=== PATIENT | male | born 1985 | race Caucasian/White ===

== ENCOUNTER 2022-07-14 11:37 | Emergency (ER) | payer BC, SELFPAY ==
--- NOTE | ~2022-07-14 | XR_ITS ---
EXAMINATION: XR KNEE, RIGHT CLINICAL INFORMATION: Pain and swelling. COMPARISON: None TECHNIQUE: Four views of the right knee. FINDINGS: Postsurgical changes from prior ACL repair. No acute fractures or malalignment. Mild chondrocalcinosis noted. Trace joint effusion. XR/XR knee RT 2V IMPRESSION: Trace joint effusion and mild chondrocalcinosis. Postsurgical changes from prior ACL repair. No acute fractures or malalignment.
--- NOTE | ~2022-07-14 | US_ITS ---
EXAMINATION: RIGHT LOWER EXTREMITY ULTRASOUND CLINICAL INFORMATION: Posterior right knee pain and lump COMPARISON: Knee radiographs earlier today TECHNIQUE: Ultrasound of the area of clinical concern in the right popliteal fossa was performed. FINDINGS: There is a large Haney's cyst measuring 5.4 x 3.7 x 2.2 cm with echogenic debris within it. No other abnormality is seen. US/US extremity nonvascular IMPRESSION: Large mildly complex right-sided Haney's cyst.
[2022-07-14 11:42] VITALS: BP 126/77; PULSE 98; RESP 16; TEMP 36.6; O2SAT 100; BMI 23.7
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
== END 2022-07-14 16:21 | disposition home or self-care (01) ==
PROVIDERS: Emergency Provider Emergency Medicine
DX: M71.21 Synovial cyst of popliteal space [Baker], right knee (principal); M25.461 Effusion, right knee; M79.604 Pain in right leg
CPT/HCPCS: 73560; 76882; 99282; 99284